=== PATIENT | female | born 1995 | race Caucasian/White ===

== ENCOUNTER 2017-08-12 18:49 | Emergency (ER) | payer OTHER ==
[2017-08-12 19:08] VITALS: BP 115/66
[2017-08-12] MEDS ORDERED: ACETAMINOPHEN 325 MG TAB PO ONE (19:56)
--- NOTE | 2017-08-12 20:38 | EDPHY ---
H & P Time Seen by Provider: 08/12/17 18:56 HPI/ROS: 22-year-old female presents complaining of fevers, chills, cough, feeling like she might pass out while at work. She works as a hair or beauty salon assistant and has been standing all day for several days. She states this initially began about 6 weeks ago and she was seen at [facility] urgent care and treated for bronchitis with albuterol, cough syrup. She states at that time she was also diagnosed with influenza, but was not placed on Tamiflu at that time. While she says she has been sick for much of the 6 weeks she does admit that she was starting to feel better when she suddenly felt markedly worse 5 days ago, with body aches fevers chills and cough. She rarely smokes. Review of systems As per HPI General positive fever positive chills positive fatigue HEENT no eye pain no eye discharge. No eye redness, no sore throat Respiratory positive cough , no shortness of breath Cardiac no chest pain, no peripheral edema GI no abdominal pain, no diarrhea, no constipation, no nausea, no vomiting no flank pain, no hematuria, no dysuria Musculoskeletal positive myalgias, no joint pain Heme no easy bruising, no easy bleeding Endo no polyuria, no polydipsia Skin no rashes, no pruritus Neuro no syncope, no dizziness, no headaches Psych is no suicidal ideation, no homicidal ideation Past Medical/Surgical History: Bronchitis Social History: Denies drug use, states she smokes rarely Works as a hair or beauty salon assistant Smoking Status: Light smoker Physical Exam: 22-year-old female Alert and oriented, nontoxic appearance, tachycardic to 125, febrile to 38.4 Atraumatic normocephalic Extraocular muscles intact, anicteric Nares mild yellowish discharge Oropharynx mild erythema no tonsillar swelling no exudate no uvular deviation, tolerating own secretions Neck supple no lymphadenopathy Lungs clear to auscultation bilaterally, no wheezing No accessory muscle use No evidence of respiratory distress Heart rapid regular rate and rhythm Abdomen normoactive bowel sounds soft nontender Extremities no cyanosis clubbing or edema Skin no rash Constitutional: Initial Vital Signs Temperature (C) 38.4 C H 08/12/17 19:06 Heart Rate 112 H 08/12/17 19:06 Respiratory Rate 20 08/12/17 19:06 Blood Pressure 115/66 08/12/17 19:06 O2 Sat (%) 94 08/12/17 19:06 O2 Delivery Mode Room Air Allergies/Adverse Reactions: No Known Allergies Allergy (Verified 08/12/17 19:11) Home Medications: Medication Instructions Recorded NK [No Known Home Meds] 08/12/17 Medical Decision Making ED Course/Re-evaluation: Patient seen and evaluated for cough fevers chills myalgias of greater than 5 days duration. Chest x-ray Negative for consolidation Influenza Positive influenza B Impression Influenza with bronchitis Plan Symptomatic/supportive care Patient outside the window for help from Tamiflu Advise rest, increase fluids, acetaminophen every 4 hr as needed for fever and ibuprofen every 8 hr as needed for pain or fever. Advise follow up with the primary care physician Also recommend that she not go to work for at least 1 week. Extensive education on reasons to return to the emergency department including difficulty breathing, high fever, vomiting, any symptoms she is worried about. Differential Diagnosis: Differential diagnosis considered but not limited to: Bronchitis, pneumonia, influenza - Data Points Laboratory Results: 08/12/17 19:05 Influenza A,B Rapid POSITIVE FOR FLU B H (NEGATIVE) Medications Given: Discontinued Medications Acetaminophen (Tylenol) 650 mg PO EDNOW ONE Stop: 08/12/17 19:57 Last Admin: 08/12/17 20:05 Dose: 650 mg Departure - Departure Disposition: Home, Routine, Self-Care Clinical Impression: Influenza B, Acute bronchitis Condition: Good Instructions: Influenza (ED) Additional Instructions: Acetaminophen every 4 hr as needed for fever Ibuprofen every 8 hr as needed for fever or pain, take with food Referrals: NONE *PRIMARY CARE P,. [Primary Care Provider] - As per Instructions Stand Alone Forms: Work Excuse
[2017-08-12 21:05] VITALS: PULSE 115; RESP 18; TEMP 99.7; O2SAT 95
== END 2017-08-12 21:02 | disposition home or self-care (01) ==
LOC: CED 18:49
DX: J20.9 Acute bronchitis, unspecified (principal); J10.1 Influenza due to other identified influenza virus with other respiratory manifestations; F17.200 Nicotine dependence, unspecified, uncomplicated
CPT/HCPCS: 71046-PO; 87400-PO